=== PATIENT | female | born 1980 | race Caucasian/White ===

== ENCOUNTER 2021-08-20 17:52 | Emergency (ER) | payer OTHER ==
[~2021-08-20] VITALS: Ht 157.5 cm; Wt 99.8 kg
[2021-08-20] MEDS ORDERED: SUDAFED 12 HOU120 MG PO (18:52)
[2021-08-20] MEDS ORDERED: SINGULAIR 10 MG10 MG PO (18:52)
[2021-08-20] MEDS ORDERED: ALEVE220 M1 PO (18:53)
[2021-08-20] MEDS ORDERED: FAMOTIDINE 10 M10 MG PO (18:53)
[2021-08-20] MEDS ORDERED: MECLIZINE HCL25 M1 PO (18:53)
[2021-08-20 20:16] VITALS: BP 117/49
== END 2021-08-20 20:17 | disposition home or self-care (01) ==
LOC: ER 17:52
DX: S09.90XA Unspecified injury of head, initial encounter (principal); M54.2 Cervicalgia; Z88.0 Allergy status to penicillin; Z88.2 Allergy status to sulfonamides; Z91.018 Allergy to other foods; Z79.1 Long term (current) use of non-steroidal anti-inflammatories (NSAID); Z79.899 Other long term (current) drug therapy; W19.XXXA Unspecified fall, initial encounter; Y93.89 Activity, other specified; Y92.89 Other specified places as the place of occurrence of the external cause; Y99.8 Other external cause status